=== PATIENT | male | born 2000 | race Caucasian/White ===

== ENCOUNTER 2024-01-11 16:32 | Observation (INO) ==
--- NOTE | 2024-01-11 20:01 | DR.URIAD ---
HPI Time Seen Time Seen by Provider: 01/11/24 19:53 PCP Primary Care Physician: Savana TARIQ Complaint Chief Complaint:: Patient states that he has had pneumonia for a week now by Savana TARIQ and it has progressively gotten worse. He states that he has a bad headache and is sore from coughing. He is currently taking an antibiotic and a steroid. He states that he COVID-19 Coronavirus risk:travel/contact w/high risk person: Yes Has patient experienced Coronavirus symptoms: Yes Coronavirus symptoms experienced: Fever and Coughing Source History Provided: Patient Mode of Arrival Mode of Arrival: Ambulatory Timing Onset of Chief Complaint: 01/04/24 PMH PMH Past Medical History: No Past Surgical History: Yes Surgical History: Ortho Surgery Past Surgical History Comment: Left ankle Family History History of Family Medical Conditions: Yes Family Medical History: Cancer and Hypertension Social History Does patient currently use any type of tobacco product: No Have you used tobacco products in the last 12 months: No Type of Tobacco Use: None Does any household member use tobacco: No Alcohol Use: None Do you use any recreational Drugs:: No Lives With: Family Lives Where: Home Travel Risk Coronavirus risk:travel/contact w/high risk person: Yes Has patient experienced Coronavirus symptoms: Yes Coronavirus symptoms experienced: Fever and Coughing Infectious screening In the last 2 months have you had wt loss of >10#?: NO Have you had fever, night sweats or hemotysis?: No Have you traveled outside the country in the last 6 months?: No Isolation: Droplet PE Vital Signs Vitals: Vital Signs Temperature 99.8 F Temperature 100.8 F Pulse Rate 76 Pulse Rate 79 Pulse Rate 79 Pulse Rate 78 Pulse Rate 81 Pulse Rate 85 Pulse Rate 81 Pulse Rate 87 Pulse Rate 85 Pulse Rate 83 Pulse Rate 86 Pulse Rate 90 Pulse Rate 91 Pulse Rate 96 Pulse Rate 86 Pulse Rate 91 Pulse Rate 92 Pulse Rate 93 Pulse Rate 83 Pulse Rate 94 Pulse Rate 86 Pulse Rate 91 Pulse Rate 84 Pulse Rate 85 Pulse Rate 90 Pulse Rate 95 Pulse Rate 95 Pulse Rate 93 Pulse Rate 110 Respiratory Rate 18 Respiratory Rate 14 Respiratory Rate 18 Respiratory Rate 28 Respiratory Rate 25 Respiratory Rate 27 Respiratory Rate 11 Respiratory Rate 14 Respiratory Rate 13 Respiratory Rate 16 Respiratory Rate 19 Respiratory Rate 10 Respiratory Rate 26 Respiratory Rate 48 Respiratory Rate 24 Respiratory Rate 14 Respiratory Rate 15 Respiratory Rate 12 Respiratory Rate 28 Respiratory Rate 35 Respiratory Rate 31 Respiratory Rate 27 Respiratory Rate 25 Respiratory Rate 21 Respiratory Rate 14 Respiratory Rate 18 Respiratory Rate 15 Respiratory Rate 9 Respiratory Rate 11 Respiratory Rate 18 Blood Pressure 111/76 Blood Pressure 114/62 Blood Pressure 121/60 Blood Pressure 121/60 Blood Pressure 121/60 Blood Pressure 127/56 Blood Pressure 123/78 Blood Pressure 121/58 Blood Pressure 115/74 Blood Pressure 116/65 Blood Pressure 102/59 Blood Pressure 114/60 Blood Pressure 113/66 Blood Pressure 125/65 Blood Pressure 125/65 Blood Pressure 116/64 O2 Sat by Pulse Oximetry 98 O2 Sat by Pulse Oximetry 98 O2 Sat by Pulse Oximetry 100 O2 Sat by Pulse Oximetry 99 O2 Sat by Pulse Oximetry 99 O2 Sat by Pulse Oximetry 99 O2 Sat by Pulse Oximetry 95 O2 Sat by Pulse Oximetry 99 O2 Sat by Pulse Oximetry 99 O2 Sat by Pulse Oximetry 97 O2 Sat by Pulse Oximetry 97 O2 Sat by Pulse Oximetry 99 O2 Sat by Pulse Oximetry 99 O2 Sat by Pulse Oximetry 98 O2 Sat by Pulse Oximetry 99 O2 Sat by Pulse Oximetry 94 ROR Labs Reviewed 01/11/24 20:15 01/11/24 20:15 Laboratory: WBC 9.1 X10^3/uL (3.6-10.0) 01/11/24 20:15 RBC 4.58 X10^6/uL (4.7-6.0) L 01/11/24 20:15 Hgb 14.2 g/dL (13.5-18.0) 01/11/24 20:15 Hct 39.7 % (42.0-54.0) L 01/11/24 20:15 MCV 86.7 fL (80.0-100.0) 01/11/24 20:15 MCH 31.1 pg (27.0-34.0) 01/11/24 20:15 MCHC 35.9 g/dL (33.0-35.0) H 01/11/24 20:15 RDW 11.9 % (11.6-16.5) 01/11/24 20:15 Plt Count 279 X10^3/uL (150.0-450.0) 01/11/24 20:15 MPV 7.6 fL (7.4-11.0) 01/11/24 20:15 Neut % (Auto) 72.7 % (42.0-75.0) 01/11/24 20:15 Lymph % (Auto) 16.2 % (21.0-51.0) L 01/11/24 20:15 [place] % (Auto) 8.1 % (0.0-13.0) 01/11/24 20:15 Eos % (Auto) 2.5 % (0.9-2.9) 01/11/24 20:15 Baso % (Auto) 0.5 % (0.2-1.0) 01/11/24 20:15 Neut # (Auto) 6.6 x10^3/uL (2.2-4.8) H 01/11/24 20:15 Lymph # (Auto) 1.5 X10^3/uL (1.3-2.9) 01/11/24 20:15 [place] # (Auto) 0.7 x10^3/uL (0.3-0.8) 01/11/24 20:15 Eos # (Auto) 0.2 x10^3/uL (0.0-0.2) 01/11/24 20:15 Baso # (Auto) 0.0 X10^3/uL (0.0-0.1) 01/11/24 20:15 Absolute Nucleated RBC 0.0 /100WBC 01/11/24 20:15 Sodium 138 mmol/L (136-145) 01/11/24 20:15 Corrected Sodium TNP 01/11/24 20:15 Potassium 3.7 mmol/L (3.5-5.1) 01/11/24 20:15 Chloride 102 mmol/L (98-107) 01/11/24 20:15 Carbon Dioxide 27.8 mmol/L (21-32) 01/11/24 20:15 BUN 15 mg/dL (7-18) 01/11/24 20:15 Creatinine 1.05 mg/dL (0.70-1.30) 01/11/24 20:15 Est GFR (MDRD) Af Amer > 60 (>60) 01/11/24 20:15 Est GFR (MDRD) Non-Af > 60 (>60) 01/11/24 20:15 Glucose 103 mg/dL (65-99) H 01/11/24 20:15 Lactic Acid 1.1 mmol/L (0.4-2.0) 01/11/24 20:15 Calcium 8.5 mg/dL (8.5-10.1) 01/11/24 20:15 Corrected Calcium 9.4 mg/dL (8.5-10.1) 01/11/24 20:15 Total Bilirubin 0.50 mg/dL (0.2-1.0) 01/11/24 20:15 AST 24 Units/L (15-37) 01/11/24 20:15 ALT 39 Units/L (12-78) 01/11/24 20:15 Alkaline Phosphatase 65 Units/L (46-116) 01/11/24 20:15 Total Protein 6.4 g/dL (6.4-8.2) 01/11/24 20:15 Albumin 2.9 g/dL (3.4-5.0) L 01/11/24 20:15 Globulin 3.5 g/dL (2.5-4.5) 01/11/24 20:15 Albumin/Globulin Ratio 0.8 Ratio (1.1-2.1) L 01/11/24 20:15 Specimen Type Clean catch urine 01/11/24 20:26 Urine Color Yellow (YELLOW) 01/11/24 20: Urine Appearance Clear (CLEAR) 01/11/24 20: Urine pH 6.5 (5.0 - 8.0) 01/11/24 20:26 Ur Specific [place] 1.020 (1.000-1.030) 01/11/24 20:26 Urine Protein Negative (NEGATIVE) 01/11/24 20:26 Urine Glucose (UA) Negative (NEGATIVE) 01/11/24 20: Urine Ketones Negative (NEGATIVE) 01/11/24 20: Urine Blood Negative (NEGATIVE) 01/11/24 20: Urine Nitrite Negative (NEGATIVE) 01/11/24 20: Urine Bilirubin Negative (NEGATIVE) 01/11/24 20: Urine Urobilinogen 2+ (NORMAL) 01/11/24 20:26 Ur Leukocyte Esterase Negative (NEGATIVE) 01/11/24 20:26 Urine RBC 0-2 /HPF (0-3) 01/11/24 20:26 Urine WBC None seen /HPF (0-5) 01/11/24 20:26 Ur Squamous Epith Cells Rare /HPF (NEGATIVE) 01/11/24 20:26 Urine Bacteria Trace /HPF (NEGATIVE) 01/11/24 20:26 Ur Culture Indicated? No/not indicated 01/11/24 20:26 SARS-CoV-2 (PCR) Negative (NEGATIVE) 01/11/24 20:26 Influenza Type A (PCR) Negative (NEGATIVE) 01/11/24 20:26 Influenza Type B (PCR) Negative (NEGATIVE) 01/11/24 20:26 RSV (PCR) Negative (NEGATIVE) 01/11/24 20:26 S. pyogenes (TEM-PCR) Not detected (NOT DETECT) 01/11/24 20:26 Opioid Opioid Risk Tool Age (Sean box if 16-45): Yes History of Preadolescent Sexual Abuse: No Total: 1 Total Score Risk Category: Low Risk Copyright: Ollie GARCIA predicting aberrant behaviors Discharge Plan Discharge Plan Patient Disposition: 09 ADMITTED INPATIENT Condition: Stable Orders to Discharge Patient Discharge Orders: Transfer (Routine); Ordered 01/12/24 Ordered By: ZARA ALCANTAR
[2024-01-11 20:24] LABS: BASOPHILS % (AUTO) 0.5 % (0.2-1.0); EOSINOPHILS # (AUTO) 0.2 x10^3/uL (0.0-0.2); EOSINOPHILS % (AUTO) 2.5 % (0.9-2.9); HEMATOCRIT 39.7 % (42.0-54.0); HEMOGLOBIN 14.2 g/dL (13.5-18.0); LYMPHOCYTES # (AUTO) 1.5 X10^3/uL (1.3-2.9); LYMPHOCYTES % (AUTO) 16.2 % (21.0-51.0); MEAN CORPUSCULAR HEMOGLOBIN 31.1 pg (27.0-34.0); MEAN CORPUSCULAR HGB CONC 35.9 g/dL (33.0-35.0); MEAN CORPUSCULAR VOLUME 86.7 fL (80.0-100.0); MEAN PLATELET VOLUME 7.6 fL (7.4-11.0); MONOCYTES # (AUTO) 0.7 x10^3/uL (0.3-0.8); MONOCYTES % (AUTO) 8.1 % (0.0-13.0); NEUTROPHILS # (AUTO) 6.6 x10^3/uL (2.2-4.8); NEUTROPHILS % (AUTO) 72.7 % (42.0-75.0); PLATELET COUNT 279 X10^3/uL (150.0-450.0); RED BLOOD COUNT 4.58 X10^6/uL (4.7-6.0); RED CELL DISTRIBUTION WIDTH 11.9 % (11.6-16.5); WHITE BLOOD COUNT 9.1 X10^3/uL (3.6-10.0)
[2024-01-11] MEDS: NS 1,000 ML IV 1,000 ML IV ONE (20:31)
[2024-01-11 20:40] LABS: ALANINE AMINOTRANSFERASE 39 Units/L (12-78); ALBUMIN 2.9 g/dL (3.4-5.0); ALKALINE PHOSPHATASE 65 Units/L (46-116); ASPARTATE AMINO TRANSFERASE 24 Units/L (15-37); BLOOD UREA NITROGEN 15 mg/dL (7-18); CALCIUM 8.5 mg/dL (8.5-10.1); CARBON DIOXIDE 27.8 mmol/L (21-32); CHLORIDE 102 mmol/L (98-107); COR CA(FOR HYPOALB) 9.4 mg/dL (8.5-10.1); CREATININE 1.05 mg/dL (0.70-1.30); GLUCOSE 103 mg/dL (65-99); POTASSIUM 3.7 mmol/L (3.5-5.1); SODIUM 138 mmol/L (136-145); TOTAL PROTEIN 6.4 g/dL (6.4-8.2); eGFR NON BLACK RACES > 60 (>60)
[2024-01-11 20:44] LABS: BILIRUBIN,URINE NEGATIVE (NEGATIVE); BLOOD/HEMOGLOBIN,URINE NEGATIVE (NEGATIVE); GLUCOSE, URINE NEGATIVE (NEGATIVE); KETONES,URINE NEGATIVE (NEGATIVE); LEUKOCYTE ESTERASE ,URINE NEGATIVE (NEGATIVE); NITRITES,URINE NEGATIVE (NEGATIVE); PH,URINE 6.5 (5.0 - 8.0); PROTEIN,URINE NEGATIVE (NEGATIVE); UROBILINOGEN,URINE 2+ (NORMAL)
[2024-01-11 20:53] LABS: APPEARANCE,URINE CLEAR (CLEAR); COLOR,URINE YELLOW (YELLOW)
[2024-01-11 20:54] LABS: BACTERIA,URINE TRACE /HPF (NEGATIVE); RBC,URINE 0-2 /HPF (0-3); SQUAMOUS EPITHELIAL CELL,UR RARE /HPF (NEGATIVE)
[2024-01-11] MEDS: TORADOL 30 MG VIAL IVP ONE (20:56)
[2024-01-11 20:57] LABS: STREP A BY PCR NOT DETECTED (NOT DETECT)
[2024-01-11] MEDS ORDERED: NS 250 ML IV 25 ML IV PRN (22:19)
[2024-01-11] MEDS: ZOSYN VIAL 3.375 GRAMS 3.375 G in NS 100 ML IV 100 ML IV SCH (22:26)
[2024-01-11] MEDS: NS 1,000 ML IV 1,000 ML IV SCH (22:27)
[2024-01-12] MEDS ORDERED: NS 250 ML IV 25 ML IV PRN (00:44)
[2024-01-12 00:47] VITALS: BMI 20.2
[2024-01-12] MEDS: ROBITUSSIN DM PO PRN (00:48)
[2024-01-12] MEDS: ZOSYN VIAL 3.375 GRAMS IV ONE (00:54)
[2024-01-12] MEDS: NS 100 ML IV 100 ML ONE (00:54)
[2024-01-12] MEDS: ZOSYN VIAL 3.375 GRAMS 3.375 G in NS 100 ML IV 100 ML IV SCH (01:26)
[2024-01-12] MEDS: ZITHROMAX INJ 500 MG VIAL 500 MG in NS 250 ML IV 250 ML IV SCH (01:47)
[2024-01-12 05:32] LABS: ALANINE AMINOTRANSFERASE 32 Units/L (12-78); ALBUMIN 2.7 g/dL (3.4-5.0); ALKALINE PHOSPHATASE 52 Units/L (46-116); ASPARTATE AMINO TRANSFERASE 20 Units/L (15-37); BLOOD UREA NITROGEN 13 mg/dL (7-18); CALCIUM 8.2 mg/dL (8.5-10.1); CARBON DIOXIDE 25.2 mmol/L (21-32); CHLORIDE 104 mmol/L (98-107); COR CA(FOR HYPOALB) 9.2 mg/dL (8.5-10.1); GLUCOSE 90 mg/dL (65-99); POTASSIUM 3.9 mmol/L (3.5-5.1); SODIUM 139 mmol/L (136-145); eGFR NON BLACK RACES > 60 (>60)
[2024-01-12 05:39] LABS: BASOPHILS # (AUTO) 0.1 X10^3/uL (0.0-0.1); BASOPHILS % (AUTO) 0.9 % (0.2-1.0); EOSINOPHILS # (AUTO) 0.3 x10^3/uL (0.0-0.2); EOSINOPHILS % (AUTO) 3.1 % (0.9-2.9); HEMATOCRIT 38.6 % (42.0-54.0); HEMOGLOBIN 13.7 g/dL (13.5-18.0); LYMPHOCYTES # (AUTO) 1.2 X10^3/uL (1.3-2.9); LYMPHOCYTES % (AUTO) 13.8 % (21.0-51.0); MEAN CORPUSCULAR HEMOGLOBIN 30.9 pg (27.0-34.0); MEAN CORPUSCULAR HGB CONC 35.5 g/dL (33.0-35.0); MEAN PLATELET VOLUME 8.1 fL (7.4-11.0); MONOCYTES # (AUTO) 0.9 x10^3/uL (0.3-0.8); MONOCYTES % (AUTO) 10.6 % (0.0-13.0); NEUTROPHILS # (AUTO) 6.2 x10^3/uL (2.2-4.8); NEUTROPHILS % (AUTO) 71.6 % (42.0-75.0); PLATELET COUNT 240 X10^3/uL (150.0-450.0); RED BLOOD COUNT 4.44 X10^6/uL (4.7-6.0); RED CELL DISTRIBUTION WIDTH 11.9 % (11.6-16.5); WHITE BLOOD COUNT 8.7 X10^3/uL (3.6-10.0)
--- NOTE | 2024-01-12 08:03 | RAD ---
EXAM:CHEST, 1 VIEWHISTORY:pneumonia for a week now by and it has progressively gotten worse. He states that he has a bad headache and is sore from coughing. He is currently taking an antibiotic and a steroid.;COMPARISON:No relevant prior studies were available for comparison at the time of interpretation.TECHNIQUE:CHEST, 1 VIEWFINDINGS:Chest:Lines and tubes: NoneMediastinum: Cardiac and mediastinal shadow is within normal limits for size and contour.Pulmonary vessels: No pulmonary vascular congestion.Lung walker: Patchy right base opacities are notedPleura: No effusion. No pneumothorax.Bones and soft tissues: No acute osseous or soft tissue abnormality.IMPRESSION:1. Patchy right base opacity may indicate pneumonia. Right lower lobe location is frequently associated with aspiration as etiology.THIS IS AN ELECTRONICALLY VERIFIED FINAL REPORT01/12/2024 8:00 AM - Electronically signed by Merrill Ko MD
[2024-01-12] MEDS: PROTONIX TAB 40 MG PO SCH (08:38)
[2024-01-12] MEDS: DUONEB 0.5 MG/3 MG (3 mL) NEB SCH (08:47)
[2024-01-12] MEDS: PULMICORT NEB TX 0.5 MG NEB SCH (08:47)
[2024-01-12] MEDS ORDERED: DUONEB 0.5 MG/3 MG (3 mL) NEB SCH (09:00)
[2024-01-12] MEDS ORDERED: PULMICORT NEB TX 0.5 MG NEB SCH (09:00)
[2024-01-12 09:07] LABS: ABG ALLEN TEST POS; ABG BASE EXCESS 1.5 mmol/L (-2.0-2.0); ABG HCO3 24.6 mmol/L (22-26)
--- NOTE | 2024-01-12 17:07 | DR.H&P ---
H&P History & Physical for Day of: H&P Date: 01/11/24 Chief Complaint Chief Complaint: chest pain, weakness, sob History of Present Illness History of Present Illness: PT IS 23 WM, ER ADMISSION WITH CP AND SOB, ONSET ONE WEEK AGO. PT STATES HE WAS SICK WITH STREP THROAT AND TOOK ATBX WITHOUT IMPROVEMENT. PT BECAME MORE WEAK WITH CHEST PAIN AND SOB ON THURSDAY. PT HAD CXR WITH PNEUMONIA. PT DENIES ANY ASTHMA OR RESP DISEASES. PT CO NO N/V/D AT THIS TIME. PLAN TO ADMIT FOR TREATMENT AND EVALUATION OF ACUTE ILLNESS. Past Surgical History Surgical History: Ortho Surgery Family History Family Medical History: Cancer Social History Does patient currently use any type of tobacco product: No Have you used tobacco products in the last 12 months: No Type of Tobacco Use: None How many years tobacco product used: 5 Does any household member use tobacco: No Alcohol Use: Other Drug Use: Marijuana Medications Home Medications: Home Medications Medication Instructions Recorded Confirmed Type albuterol sulfate 90 mcg/actuation 2 puff inhalation Q4-6H PRN dyspnea 01/11/24 01/11/24 History aerosol inhaler amoxicillin 500 mg tablet 1,000 mg PO TID 01/11/24 01/11/24 History prednisone 10 mg tablet 10 mg PO BID 01/11/24 01/11/24 History Allergies Allergies Allergy/AdvReac Type Severity Reaction Status Date / Time No Known Allergies Allergy Verified 01/11/24 16:34 Labs 01/12/24 04:00 01/12/24 04:00 Labs: Laboratory WBC 8.7 X10^3/uL (3.6-10.0) 01/12/24 04:00 RBC 4.44 X10^6/uL (4.7-6.0) L 01/12/24 04:00 Hgb 13.7 g/dL (13.5-18.0) 01/12/24 04:00 Hct 38.6 % (42.0-54.0) L 01/12/24 04:00 MCV 87.0 fL (80.0-100.0) 01/12/24 04:00 MCH 30.9 pg (27.0-34.0) 01/12/24 04:00 MCHC 35.5 g/dL (33.0-35.0) H 01/12/24 04:00 RDW 11.9 % (11.6-16.5) 01/12/24 04:00 Plt Count 240 X10^3/uL (150.0-450.0) 01/12/24 04:00 MPV 8.1 fL (7.4-11.0) 01/12/24 04:00 Neut % (Auto) 71.6 % (42.0-75.0) 01/12/24 04:00 Lymph % (Auto) 13.8 % (21.0-51.0) L 01/12/24 04:00 [place] % (Auto) 10.6 % (0.0-13.0) 01/12/24 04:00 Eos % (Auto) 3.1 % (0.9-2.9) H 01/12/24 04:00 Baso % (Auto) 0.9 % (0.2-1.0) 01/12/24 04:00 Neut # (Auto) 6.2 x10^3/uL (2.2-4.8) H 01/12/24 04:00 Lymph # (Auto) 1.2 X10^3/uL (1.3-2.9) L 01/12/24 04:00 [place] # (Auto) 0.9 x10^3/uL (0.3-0.8) H 01/12/24 04:00 Eos # (Auto) 0.3 x10^3/uL (0.0-0.2) H 01/12/24 04:00 Baso # (Auto) 0.1 X10^3/uL (0.0-0.1) 01/12/24 04:00 Absolute Nucleated RBC 0.0 /100WBC 01/12/24 04:00 Sample Site Rrad 01/12/24 09:00 ABG pH 7.480 (7.35-7.45) H 01/12/24 09:00 ABG pCO2 33.0 mmHg (35.0-45.0) L 01/12/24 09:00 ABG pO2 84.0 mmHg (80.0-100.0) 01/12/24 09:00 ABG HCO3 24.6 mmol/L (22-26) 01/12/24 09:00 ABG O2 Saturation 97.0 % (90-100) 01/12/24 09:00 ABG Base Excess 1.5 mmol/L (-2.0-2.0) 01/12/24 09:00 Ray Test Pos 01/12/24 09:00 A-a Gradient 24.0 mmHg 01/12/24 09:00 FiO2 21.0 01/12/24 09:00 Blood Gas Comments Luis E well ms 01/12/24 09:00 Sodium 139 mmol/L (136-145) 01/12/24 04:00 Corrected Sodium TNP 01/12/24 04:00 Potassium 3.9 mmol/L (3.5-5.1) 01/12/24 04:00 Chloride 104 mmol/L (98-107) 01/12/24 04:00 Carbon Dioxide 25.2 mmol/L (21-32) 01/12/24 04:00 BUN 13 mg/dL (7-18) 01/12/24 04:00 Creatinine 0.90 mg/dL (0.70-1.30) 01/12/24 04:00 Est GFR (MDRD) Af Amer > 60 (>60) 01/12/24 04:00 Est GFR (MDRD) Non-Af > 60 (>60) 01/12/24 04:00 Glucose 90 mg/dL (65-99) 01/12/24 04:00 Lactic Acid 1.1 mmol/L (0.4-2.0) 01/11/24 20:15 Calcium 8.2 mg/dL (8.5-10.1) L 01/12/24 04:00 Corrected Calcium 9.2 mg/dL (8.5-10.1) 01/12/24 04:00 Total Bilirubin 1.00 mg/dL (0.2-1.0) 01/12/24 04:00 AST 20 Units/L (15-37) 01/12/24 04:00 ALT 32 Units/L (12-78) 01/12/24 04:00 Alkaline Phosphatase 52 Units/L (46-116) 01/12/24 04:00 Total Protein 6.0 g/dL (6.4-8.2) L 01/12/24 04:00 Albumin 2.7 g/dL (3.4-5.0) L 01/12/24 04:00 Globulin 3.3 g/dL (2.5-4.5) 01/12/24 04:00 Albumin/Globulin Ratio 0.8 Ratio (1.1-2.1) L 01/12/24 04:00 Specimen Type Clean catch urine 01/11/24 20: Urine Color Yellow (YELLOW) 01/11/24 20: Urine Appearance Clear (CLEAR) 01/11/24 20: Urine pH 6.5 (5.0 - 8.0) 01/11/24 20: Ur Specific [place] 1.020 (1.000-1.030) 01/11/24 20: Urine Protein Negative (NEGATIVE) 01/11/24 20: Urine Glucose (UA) Negative (NEGATIVE) 01/11/24 20: Urine Ketones Negative (NEGATIVE) 01/11/24 20: Urine Blood Negative (NEGATIVE) 01/11/24 20: Urine Nitrite Negative (NEGATIVE) 01/11/24 20: Urine Bilirubin Negative (NEGATIVE) 01/11/24 20: Urine Urobilinogen 2+ (NORMAL) 01/11/24 20: Ur Leukocyte Esterase Negative (NEGATIVE) 01/11/24 20: Urine RBC 0-2 /HPF (0-3) 01/11/24 20: Urine WBC None seen /HPF (0-5) 01/11/24 20: Ur Squamous Epith Cells Rare /HPF (NEGATIVE) 01/11/24 20: Urine Bacteria Trace /HPF (NEGATIVE) 01/11/24 20: Ur Culture Indicated? No/not indicated 01/11/24 20: SARS-CoV-2 (PCR) Negative (NEGATIVE) 01/11/24 20: Influenza Type A (PCR) Negative (NEGATIVE) 01/11/24 20: Influenza Type B (PCR) Negative (NEGATIVE) 01/11/24 20: RSV (PCR) Negative (NEGATIVE) 01/11/24 20: S. pyogenes (TEM-PCR) Not detected (NOT DETECT) 01/11/24 20: Review of Systems Constitutional: Weakness and Malaise Eyes: No Symptoms Reported ENT: Throat Pain Respiratory: Shortness of Breath Cardiovascular: Edema Gastrointestinal: Nausea Genitourinary: No Symptoms Reported Musculoskeletal: Back Pain Skin: No Symptoms Reported Neurological: No Symptoms Reported Physical Exam Vital Signs: Vital Signs Temperature 98.0 F Pulse Rate 79 Pulse Rate 87 Pulse Rate 94 Pulse Rate 85 Respiratory Rate 23 Blood Pressure 138/74 O2 Sat by Pulse Oximetry 98 O2 Sat by Pulse Oximetry 98 O2 Sat by Pulse Oximetry 98 O2 Sat by Pulse Oximetry 98 Oriented: Normal Eyes: Normal Ear: Normal Nose: Normal Throat: Red and Dry Respiratory: RLL Diminished and LLL Diminished Cardiovascular: Tachycardia : Normal Auscultation: Bowel Sounds: Normal Palpation: Normal Tenderness: Normal Skin: Normal Musculoskeletal: Normal Psychiatric: Anxiety Affect: Anxious Speech Pattern: Clear and Appropriate Assessment/Plan (1) Pneumonia: Narrative Support Text: ADMIT, CXR ON ADMISSION AIT, RESP THERAPY PRN SUPPLEMENTAL O2 IV HYDRATION, IV ATBX VERIFY HOME MEDICATIONS REPEAT AM LABS Status: Acute
--- NOTE | 2024-01-12 17:12 | PCM.PROG ---
Progress Note Progress Note for Day of Date of Exam: 01/12/24 Subjective Subjective: PT IS 23 WM, ER ADMISSION WITH PNEUMONIA. RECENTLY DX WITH STREP THROAT ONE WEEK AGO. PT HAS AIT SWAB ON ADMISSION WITH RESULTS PENDING. PT HAS BEEN ON IV HYDRATION WITH IV ATBX THERAPY. PT O2 SAT THIS AM 94. ABG ON ROOM AIR ORDERED AND D-DIMER PT STATES HES FEELING SOME STRONGER SINCE HES HAD IV HYDRATION, BUT CONTINUES WITH CENTRAL CHEST PAIN, MORE PLEURITIC. PLAN TO CONTINUE CURRENT PNEUMONIA PROTOCOL, ENCOURAGED ORAL HDYRATION AND PULMONARY TOILETING Past Medical Family Social History Allergies: Allergies No Known Allergies Allergy (Verified 01/11/24 16:34) Vital Signs and I&O's Vital Signs: Vital Signs Temperature 98.0 F Pulse Rate 79 Pulse Rate 87 Pulse Rate 94 Pulse Rate 85 Respiratory Rate 23 Blood Pressure 138/74 O2 Sat by Pulse Oximetry 98 O2 Sat by Pulse Oximetry 98 O2 Sat by Pulse Oximetry 98 O2 Sat by Pulse Oximetry 98 Intake and Output: Intake & Output 01/10/24 01/11/24 01/12/24 01/13/24 11:59 11:59 11:59 11:59 Intake Total 908 / 908 Balance 908 / 908 Physical Exam Oriented: Normal Eyes: Normal Ear: Normal Nose: Normal Throat: Red and Dry Respiratory: Wheezes Cardiovascular: Tachycardia : Normal Auscultation: Bowel Sounds: Normal Tenderness: Normal Skin: Normal Musculoskeletal: Normal Psychiatric: Anxiety Affect: Anxious Speech Pattern: Clear and Appropriate Laboratory and Diagnostics 01/12/24 04:00 01/12/24 04:00 Labs: Laboratory WBC 8.7 X10^3/uL (3.6-10.0) 01/12/24 04:00 RBC 4.44 X10^6/uL (4.7-6.0) L 01/12/24 04:00 Hgb 13.7 g/dL (13.5-18.0) 01/12/24 04:00 Hct 38.6 % (42.0-54.0) L 01/12/24 04:00 MCV 87.0 fL (80.0-100.0) 01/12/24 04:00 MCH 30.9 pg (27.0-34.0) 01/12/24 04:00 MCHC 35.5 g/dL (33.0-35.0) H 01/12/24 04:00 RDW 11.9 % (11.6-16.5) 01/12/24 04:00 Plt Count 240 X10^3/uL (150.0-450.0) 01/12/24 04:00 MPV 8.1 fL (7.4-11.0) 01/12/24 04:00 Neut % (Auto) 71.6 % (42.0-75.0) 01/12/24 04:00 Lymph % (Auto) 13.8 % (21.0-51.0) L 01/12/24 04:00 [place] % (Auto) 10.6 % (0.0-13.0) 01/12/24 04:00 Eos % (Auto) 3.1 % (0.9-2.9) H 01/12/24 04:00 Baso % (Auto) 0.9 % (0.2-1.0) 01/12/24 04:00 Neut # (Auto) 6.2 x10^3/uL (2.2-4.8) H 01/12/24 04:00 Lymph # (Auto) 1.2 X10^3/uL (1.3-2.9) L 01/12/24 04:00 [place] # (Auto) 0.9 x10^3/uL (0.3-0.8) H 01/12/24 04:00 Eos # (Auto) 0.3 x10^3/uL (0.0-0.2) H 01/12/24 04:00 Baso # (Auto) 0.1 X10^3/uL (0.0-0.1) 01/12/24 04:00 Absolute Nucleated RBC 0.0 /100WBC 01/12/24 04:00 Sample Site Rrad 01/12/24 09:00 ABG pH 7.480 (7.35-7.45) H 01/12/24 09:00 ABG pCO2 33.0 mmHg (35.0-45.0) L 01/12/24 09:00 ABG pO2 84.0 mmHg (80.0-100.0) 01/12/24 09:00 ABG HCO3 24.6 mmol/L (22-26) 01/12/24 09:00 ABG O2 Saturation 97.0 % (90-100) 01/12/24 09:00 ABG Base Excess 1.5 mmol/L (-2.0-2.0) 01/12/24 09:00 Ray Test Pos 01/12/24 09:00 A-a Gradient 24.0 mmHg 01/12/24 09:00 FiO2 21.0 01/12/24 09:00 Blood Gas Comments Luis E well ms 01/12/24 09:00 Sodium 139 mmol/L (136-145) 01/12/24 04:00 Corrected Sodium TNP 01/12/24 04:00 Potassium 3.9 mmol/L (3.5-5.1) 01/12/24 04:00 Chloride 104 mmol/L (98-107) 01/12/24 04:00 Carbon Dioxide 25.2 mmol/L (21-32) 01/12/24 04:00 BUN 13 mg/dL (7-18) 01/12/24 04:00 Creatinine 0.90 mg/dL (0.70-1.30) 01/12/24 04:00 Est GFR (MDRD) Af Amer > 60 (>60) 01/12/24 04:00 Est GFR (MDRD) Non-Af > 60 (>60) 01/12/24 04:00 Glucose 90 mg/dL (65-99) 01/12/24 04:00 Lactic Acid 1.1 mmol/L (0.4-2.0) 01/11/24 20:15 Calcium 8.2 mg/dL (8.5-10.1) L 01/12/24 04:00 Corrected Calcium 9.2 mg/dL (8.5-10.1) 01/12/24 04:00 Total Bilirubin 1.00 mg/dL (0.2-1.0) 01/12/24 04:00 AST 20 Units/L (15-37) 01/12/24 04:00 ALT 32 Units/L (12-78) 01/12/24 04:00 Alkaline Phosphatase 52 Units/L (46-116) 01/12/24 04:00 Total Protein 6.0 g/dL (6.4-8.2) L 01/12/24 04:00 Albumin 2.7 g/dL (3.4-5.0) L 01/12/24 04:00 Globulin 3.3 g/dL (2.5-4.5) 01/12/24 04:00 Albumin/Globulin Ratio 0.8 Ratio (1.1-2.1) L 01/12/24 04:00 Specimen Type Clean catch urine 01/11/24 20: Urine Color Yellow (YELLOW) 01/11/24 20: Urine Appearance Clear (CLEAR) 01/11/24 20: Urine pH 6.5 (5.0 - 8.0) 01/11/24 20: Ur Specific [place] 1.020 (1.000-1.030) 01/11/24 20: Urine Protein Negative (NEGATIVE) 01/11/24 20: Urine Glucose (UA) Negative (NEGATIVE) 01/11/24 20: Urine Ketones Negative (NEGATIVE) 01/11/24 20: Urine Blood Negative (NEGATIVE) 01/11/24 20: Urine Nitrite Negative (NEGATIVE) 01/11/24 20: Urine Bilirubin Negative (NEGATIVE) 01/11/24 20: Urine Urobilinogen 2+ (NORMAL) 01/11/24 20: Ur Leukocyte Esterase Negative (NEGATIVE) 01/11/24 20: Urine RBC 0-2 /HPF (0-3) 01/11/24 20: Urine WBC None seen /HPF (0-5) 01/11/24 20: Ur Squamous Epith Cells Rare /HPF (NEGATIVE) 01/11/24 20: Urine Bacteria Trace /HPF (NEGATIVE) 01/11/24 20: Ur Culture Indicated? No/not indicated 01/11/24 20: SARS-CoV-2 (PCR) Negative (NEGATIVE) 01/11/24 20: Influenza Type A (PCR) Negative (NEGATIVE) 01/11/24 20: Influenza Type B (PCR) Negative (NEGATIVE) 01/11/24 20: RSV (PCR) Negative (NEGATIVE) 01/11/24 20: S. pyogenes (TEM-PCR) Not detected (NOT DETECT) 01/11/24 20: Plan (1) Pneumonia: Status: Acute Plan: IV ABTX, IV HYDRATION ROOM AIR ABG, RESP THERAPY DDIMER, REPEAT AM CXR REPEAT AM LABS
[2024-01-12] MEDS: ROBITUSSIN DM PO SCH (19:33)
[2024-01-13 04:19] VITALS: TEMP 98.3
[2024-01-13 05:10] LABS: BASOPHILS % (AUTO) 0.7 % (0.2-1.0); EOSINOPHILS # (AUTO) 0.2 x10^3/uL (0.0-0.2); EOSINOPHILS % (AUTO) 4.1 % (0.9-2.9); HEMATOCRIT 35.2 % (42.0-54.0); HEMOGLOBIN 12.8 g/dL (13.5-18.0); LYMPHOCYTES # (AUTO) 1.4 X10^3/uL (1.3-2.9); LYMPHOCYTES % (AUTO) 22.6 % (21.0-51.0); MEAN CORPUSCULAR HEMOGLOBIN 31.7 pg (27.0-34.0); MEAN CORPUSCULAR HGB CONC 36.3 g/dL (33.0-35.0); MEAN CORPUSCULAR VOLUME 87.3 fL (80.0-100.0); MEAN PLATELET VOLUME 7.5 fL (7.4-11.0); MONOCYTES # (AUTO) 0.8 x10^3/uL (0.3-0.8); MONOCYTES % (AUTO) 13.5 % (0.0-13.0); NEUTROPHILS # (AUTO) 3.6 x10^3/uL (2.2-4.8); NEUTROPHILS % (AUTO) 59.1 % (42.0-75.0); PLATELET COUNT 225 X10^3/uL (150.0-450.0); RED BLOOD COUNT 4.04 X10^6/uL (4.7-6.0); RED CELL DISTRIBUTION WIDTH 11.8 % (11.6-16.5); WHITE BLOOD COUNT 6.1 X10^3/uL (3.6-10.0)
[2024-01-13 05:15] LABS: ALANINE AMINOTRANSFERASE 29 Units/L (12-78); ALBUMIN 2.5 g/dL (3.4-5.0); ALKALINE PHOSPHATASE 51 Units/L (46-116); ASPARTATE AMINO TRANSFERASE 18 Units/L (15-37); BLOOD UREA NITROGEN 8 mg/dL (7-18); CALCIUM 8.4 mg/dL (8.5-10.1); CARBON DIOXIDE 28.7 mmol/L (21-32); CHLORIDE 105 mmol/L (98-107); COR CA(FOR HYPOALB) 9.6 mg/dL (8.5-10.1); CREATININE 0.99 mg/dL (0.70-1.30); GLUCOSE 102 mg/dL (65-99); POTASSIUM 3.9 mmol/L (3.5-5.1); SODIUM 140 mmol/L (136-145); eGFR NON BLACK RACES > 60 (>60)
--- NOTE | 2024-01-13 07:30 | RAD ---
EXAM:CHEST, PA/LAT ADULTHISTORY:PneumoniaCOMPARISON: 024FINDINGS:The trachea is midline. The cardiac silhouette is unremarkable. Slightly improved aeration but persistent right lower lobe infiltrate consistent with bronchopneumonia. The left hemithorax appears clear.. The bony thorax is unremarkable.IMPRESSION:Improved but persistent right lower lobe pneumonia.THIS IS AN ELECTRONICALLY VERIFIED FINAL REPORT01/13/2024 7:27 AM - Electronically signed by Bishop Patel MD
[2024-01-13 08:48] VITALS: BP 129/63; PULSE 81; RESP 15; O2SAT 96
--- NOTE | 2024-01-18 15:40 | PCM.DCPLAN ---
DISCHARGE SUMMARY Admission Date Date of Admission: 01/11/24 Discharge Date Discharge Date: 01/13/24 Admission Diagnoses (1) Pneumonia: Status: Acute Discharge Diagnoses Discharge Diagnosis: improved pneumonia Discharge Medications Discharge Medications: Home Medication List albuterol sulfate 90 mcg/actuation aerosol inhaler 2 puff inhalation Q4-6H PRN dyspnea 01/11/24 [History] amoxicillin 500 mg tablet 1,000 mg PO TID 01/11/24 [History] prednisone 10 mg tablet 10 mg PO BID 01/11/24 [History] ipratropium 0.5 mg-albuterol 3 mg (2.5 mg base)/3 mL nebulization soln 3 ml NEB QID 7 days #90 mL 01/13/24 [Rx] Prescriptions: ipratropium-albuterol [facility] Course Latest Lab Results: Laboratory Last Values WBC 6.1 X10^3/uL (3.6-10.0) 01/13/24 04:02 RBC 4.04 X10^6/uL (4.7-6.0) L 01/13/24 04:02 Hgb 12.8 g/dL (13.5-18.0) L 01/13/24 04:02 Hct 35.2 % (42.0-54.0) L 01/13/24 04:02 MCV 87.3 fL (80.0-100.0) 01/13/24 04:02 MCH 31.7 pg (27.0-34.0) 01/13/24 04:02 MCHC 36.3 g/dL (33.0-35.0) H 01/13/24 04:02 RDW 11.8 % (11.6-16.5) 01/13/24 04:02 Plt Count 225 X10^3/uL (150.0-450.0) 01/13/24 04:02 MPV 7.5 fL (7.4-11.0) 01/13/24 04:02 Neut % (Auto) 59.1 % (42.0-75.0) 01/13/24 04:02 Lymph % (Auto) 22.6 % (21.0-51.0) 01/13/24 04:02 Wilkin % (Auto) 13.5 % (0.0-13.0) H 01/13/24 04:02 Eos % (Auto) 4.1 % (0.9-2.9) H 01/13/24 04:02 Baso % (Auto) 0.7 % (0.2-1.0) 01/13/24 04:02 Neut # (Auto) 3.6 x10^3/uL (2.2-4.8) 01/13/24 04:02 Lymph # (Auto) 1.4 X10^3/uL (1.3-2.9) 01/13/24 04:02 [place] # (Auto) 0.8 x10^3/uL (0.3-0.8) 01/13/24 04:02 Eos # (Auto) 0.2 x10^3/uL (0.0-0.2) 01/13/24 04:02 Baso # (Auto) 0.0 X10^3/uL (0.0-0.1) 01/13/24 04:02 Absolute Nucleated RBC 0.0 /100WBC 01/13/24 04:02 D-Dimer 0.56 ug/ml (0.0-0.57) 01/12/24 17:49 Sample Site Rrad 01/12/24 09:00 ABG pH 7.480 (7.35-7.45) H 01/12/24 09:00 ABG pCO2 33.0 mmHg (35.0-45.0) L 01/12/24 09:00 ABG pO2 84.0 mmHg (80.0-100.0) 01/12/24 09:00 ABG HCO3 24.6 mmol/L (22-26) 01/12/24 09:00 ABG O2 Saturation 97.0 % (90-100) 01/12/24 09:00 ABG Base Excess 1.5 mmol/L (-2.0-2.0) 01/12/24 09:00 Ray Test Pos 01/12/24 09:00 A-a Gradient 24.0 mmHg 01/12/24 09:00 FiO2 21.0 01/12/24 09:00 Blood Gas Comments Luis E well ms 01/12/24 09:00 Sodium 140 mmol/L (136-145) 01/13/24 04:02 Corrected Sodium TNP 01/13/24 04:02 Potassium 3.9 mmol/L (3.5-5.1) 01/13/24 04:02 Chloride 105 mmol/L (98-107) 01/13/24 04:02 Carbon Dioxide 28.7 mmol/L (21-32) 01/13/24 04:02 BUN 8 mg/dL (7-18) 01/13/24 04:02 Creatinine 0.99 mg/dL (0.70-1.30) 01/13/24 04:02 Est GFR (MDRD) Af Amer > 60 (>60) 01/13/24 04:02 Est GFR (MDRD) Non-Af > 60 (>60) 01/13/24 04:02 Glucose 102 mg/dL (65-99) H 01/13/24 04:02 Lactic Acid 1.1 mmol/L (0.4-2.0) 01/11/24 20:15 Calcium 8.4 mg/dL (8.5-10.1) L 01/13/24 04:02 Corrected Calcium 9.6 mg/dL (8.5-10.1) 01/13/24 04:02 Total Bilirubin 0.70 mg/dL (0.2-1.0) 01/13/24 04:02 AST 18 Units/L (15-37) 01/13/24 04:02 ALT 29 Units/L (12-78) 01/13/24 04:02 Alkaline Phosphatase 51 Units/L (46-116) 01/13/24 04:02 Total Protein 6.0 g/dL (6.4-8.2) L 01/13/24 04:02 Albumin 2.5 g/dL (3.4-5.0) L 01/13/24 04:02 Globulin 3.5 g/dL (2.5-4.5) 01/13/24 04:02 Albumin/Globulin Ratio 0.7 Ratio (1.1-2.1) L 01/13/24 04:02 Specimen Type Clean catch urine 01/11/24 20:26 Urine Color Yellow (YELLOW) 01/11/24 20:26 Urine Appearance Clear (CLEAR) 01/11/24 20:26 Urine pH 6.5 (5.0 - 8.0) 01/11/24 20:26 Ur Specific [place] 1.020 (1.000-1.030) 01/11/24 20: Urine Protein Negative (NEGATIVE) 01/11/24 20: Urine Glucose (UA) Negative (NEGATIVE) 01/11/24 20: Urine Ketones Negative (NEGATIVE) 01/11/24 20: Urine Blood Negative (NEGATIVE) 01/11/24 20: Urine Nitrite Negative (NEGATIVE) 01/11/24 20: Urine Bilirubin Negative (NEGATIVE) 01/11/24 20: Urine Urobilinogen 2+ (NORMAL) 01/11/24 20: Ur Leukocyte Esterase Negative (NEGATIVE) 01/11/24 20: Urine RBC 0-2 /HPF (0-3) 01/11/24 20: Urine WBC None seen /HPF (0-5) 01/11/24 20: Ur Squamous Epith Cells Rare /HPF (NEGATIVE) 01/11/24 20: Urine Bacteria Trace /HPF (NEGATIVE) 01/11/24 20: Ur Culture Indicated? No/not indicated 01/11/24 20: SARS-CoV-2 (PCR) Negative (NEGATIVE) 01/11/24 20: Influenza Type A (PCR) Negative (NEGATIVE) 01/11/24 20: Influenza Type B (PCR) Negative (NEGATIVE) 01/11/24 20: RSV (PCR) Negative (NEGATIVE) 01/11/24 20: Resp Viral Panel (PCR) See scanned report 01/12/24 00:20 S. pyogenes (TEM-PCR) Not detected (NOT DETECT) 01/11/24 20:26 Hospital Course: Patient is a 23 year old white male who was an ER admission after presenting on 01/11/24 with complaints of chest pain and shortness of breath, ongoing for 1 week. Patient reports initially having strep throat that progressed to pneumonia, failing outpatient treatment with antibiotic therapy. Upon arrival, we obtained a chest xray that showed patchy right base opacity- may indicate pneumonia. Initial labs: wbc 9.1, hgb 14.2, bun 15/creatinine 1.05. He tested negative for influenza, covid, RSV. He was started on IV atbx therapy as well as IV hydration. We obtained a d-dimer and it was within normal limits. Blood/Sputum cultures obtained and were negative. His 02 sat has remained stable throughout stay, not requiring supplemental oxygen. We obtained a repeat chest xray this morning that showed Improved but persistent right lower lobe pneumonia. AM labs: wbc 6.1, hgb 12.8, bun 8/creatinine 0.99. Patient states that he is feeling much improved, so we will allow him to discharge home to continue po amoxil, duonebs, and prednisone 30mg po dailiy x 3 20mg po daily x 3 then 10mg po daily x3. He was recommended to have a repeat cxr in 2 weeks and follow up with pcp in 3-5 days. He was encouraged to rest, increase po fluids, and ambulate frequently. Please see discharge plan for list of discharge medications and modifications that we made, electronic medical record for diagnostic tests and labs. The patient was instructed to return to the ER if condition changed or worsened unexpectedly.
== END 2024-01-13 11:50 | disposition home or self-care (01) ==
LOC: ER 16:32 → ICU 16:32
PROVIDERS: ADMIT Internal Medicine; ATTEND Internal Medicine
DX: J18.8 Other pneumonia, unspecified organism; R06.02 Shortness of breath; R51.9 Headache, unspecified; Z20.822 Contact with and (suspected) exposure to COVID-19; R07.89 Other chest pain; R53.1 Weakness